=== PATIENT | female | born 1960 | race Caucasian/White ===

== ENCOUNTER 2018-01-21 08:41 | Emergency (ER) | payer BC, OTHER ==
[~2018-01-21] VITALS: Ht 157.5 cm; Wt 57.2 kg
[2018-01-21 08:52] VITALS: BP 91/65
[2018-01-21] MEDS ORDERED: KETOROLAC TROMETH 60MG/2ML VIAL IM ONE (09:45)
== END 2018-01-21 10:17 | disposition home or self-care (01) ==
LOC: ER 08:41
DX: Z04.1 Encounter for examination and observation following transport accident (principal); R07.9 Chest pain, unspecified; I10 Essential (primary) hypertension; V43.52XA Car driver injured in collision with other type car in traffic accident, initial encounter; Y93.89 Activity, other specified; Y99.8 Other external cause status; Y92.488 Other paved roadways as the place of occurrence of the external cause
CPT/HCPCS: 71046; 93005

== ENCOUNTER 2022-05-29 09:38 | Emergency (ER) | payer BC ==
[~2022-05-29] VITALS: Ht 157.5 cm; Wt 130.0 kg
[2022-05-29 09:53] VITALS: BP 128/65
[2022-05-29] MEDS ORDERED: KETOROLAC TROMETH 60MG/2ML VIAL IM ONE (12:30)
== END 2022-05-29 14:21 | disposition home or self-care (01) ==
LOC: ER 09:38
DX: S92.312A Displaced fracture of first metatarsal bone, left foot, initial encounter for closed fracture (principal); I10 Essential (primary) hypertension; E78.5 Hyperlipidemia, unspecified; Z90.89 Acquired absence of other organs; Z90.710 Acquired absence of both cervix and uterus; X58.XXXA Exposure to other specified factors, initial encounter; Y93.89 Activity, other specified; Y92.89 Other specified places as the place of occurrence of the external cause; Y99.8 Other external cause status
CPT/HCPCS: 29515; 73610; 73630; 96372; 99284; J1885